=== PATIENT | male | born 1985 | race Two or more races ===

== ENCOUNTER 2019-08-19 06:03 | Inpatient (IN) | payer MEDICAID ==
[~2019-08-19] VITALS: Ht 165.1 cm; Wt 97.1 kg
[~2019-08-19 06:03] MED LIST: CICL8KIT4 EX; KETO2CRE4 TOP; LIDO5DIS21 TOP
[2019-08-19] MEDS ORDERED: HEPARIN SODIUM (PORCINE) 5000 UNITS/ML 1ML VIAL ONE (06:53)
[2019-08-19] MEDS ORDERED: ceFAZolin 1GM/50ML 100 ML IV ONE (06:55)
[2019-08-19] MEDS ORDERED: SUCCINYLCHOLINE CHLORIDE 20 MG/ML 10ML VIAL IV ONE (07:07)
[2019-08-19] MEDS ORDERED: LIDOCAINE W/ EPINEPHRINE 1% 20ML VIAL ONE (07:24)
[2019-08-19] MEDS ORDERED: BUPIVACAINE 0.25% INJ 50ML VIAL ONE (07:24)
[2019-08-19] MEDS ORDERED: ROCURONIUM 10MG/ML 10ML VIAL IV ONE (07:40)
[2019-08-19] MEDS ORDERED: fentaNYL CITRATE 100 MCG/2 ML VL ONE ×2 (07:40→08:11)
[2019-08-19] MEDS ORDERED: PROPOFOL 10 MG/ML 20 ML IV ONE (07:45)
[2019-08-19] MEDS ORDERED: SODIUM CHLORIDE 0.9% 1,000 ML IV SCH (09:12)
[2019-08-19] MEDS ORDERED: DOCUSATE SOD 100 MG CAP PO PRN (09:15)
[2019-08-19] MEDS ORDERED: HYDROmorphone HCL 2 MG/ML VL IV PRN ×2 (09:15)
[2019-08-19] MEDS ORDERED: ePHEDrine SULFATE 50 MG/ML AMP IV PRN (09:15)
[2019-08-19] MEDS ORDERED: MORPHINE SULF INJ 2 MG/ML SYRINGE 1ML IV PRN (09:15)
[2019-08-19] MEDS ORDERED: ONDANSETRON HCL 4 MG/2 ML VIAL IV PRN ×2 (09:15)
[2019-08-19] MEDS ORDERED: hydrALAZINE HCL 20 MG/ML VL IV PRN (09:15)
[2019-08-19] MEDS ORDERED: NITROGLYCERIN 0.4 MG SL TAB SL PRN (09:15)
[2019-08-19] MEDS ORDERED: HYDROmorphone HCL 2 MG/ML VL ONE (09:19)
--- NOTE | 2019-08-19 10:50 | NUR ---
Telemetry admit from OR JORDAN JOHNSON admitted to Telemetry unit after SBAR received. Patient oriented to [facility] boss RN, unit, room, bed, and unit policies regarding patient care and visiting hours. Patient now on continuous telemetry monitoring, tele box # [77] and telemetry reading on arrival to unit is [SR 76]. Patient placed on bedside oxygen at 3L via NC, on continuous pulse ox per MD's order. weighed by bedscale and encouraged to call if they need something. All questions and concerns addressed, patient verbalized understanding.
[2019-08-19 13:00] VITALS: BP 128/82
[2019-08-19 15:04] LABS: Basophils # (auto) 0 10 ^3/uL (0-0.2); Basophils % (auto) 0.2 % (0.0-2.0); Eosinophils # (auto) 0 10 ^3/uL (0-0.8); Hematocrit 43.6 % (41.0-53.0); Hemoglobin 14.3 g/dL (13.5-17.5); Lymphocytes # (auto) 0.6 10 ^3/uL (0.4-5.4); Lymphocytes % (auto) 5.2 % (10.0-50.0); Mean Corpuscular Hemoglobin 27.5 pg (28.0-32.0); Mean Corpuscular Hgb Conc. 32.8 g/dL (32.0-36.0); Mean Corpuscular Volume 83.7 fL (80.0-100.0); Monocytes # (auto) 0.2 10 ^3/uL (0-1.3); Monocytes % (auto) 1.7 % (0.0-12.0); Neutrophils # (auto) 11.1 10 ^3/uL (1.6-8.6); Neutrophils % (auto) 92.9 % (37.0-80.0); Platelet Count (auto) 137 10^3/uL (140-450); Red Cell Distribution Width 14.4 % (11.8-14.3); White Blood Cell 11.9 10^3/uL (4.4-10.8)
[2019-08-19 15:17] LABS: BUN/Creatinine Ratio 12.2; Calcium 8.8 mg/dL (8.5-10.1); Potassium 3.9 mmol/L (3.5-5.1)
[2019-08-19 15:51] VITALS: BP 128/82
[2019-08-19 17:00] VITALS: BP 123/74
[2019-08-19] MEDS: HYDROcodone-ACET 5/325MG TAB PO PRN (17:34)
[2019-08-19 19:20] VITALS: BP 134/72
[2019-08-19 22:56] VITALS: BP 134/73
[2019-08-20 05:49] VITALS: BP 113/55
[2019-08-20 06:35] LABS: Basophils # (auto) 0 10 ^3/uL (0-0.2); Basophils % (auto) 0.1 % (0.0-2.0); Eosinophils # (auto) 0 10 ^3/uL (0-0.8); Eosinophils % (auto) 0.1 % (0.0-7.0); Hematocrit 40.7 % (41.0-53.0); Hemoglobin 13.7 g/dL (13.5-17.5); Lymphocytes # (auto) 1.7 10 ^3/uL (0.4-5.4); Lymphocytes % (auto) 16.4 % (10.0-50.0); Mean Corpuscular Hemoglobin 28.1 pg (28.0-32.0); Mean Corpuscular Hgb Conc. 33.6 g/dL (32.0-36.0); Mean Corpuscular Volume 83.7 fL (80.0-100.0); Neutrophils # (auto) 7.6 10 ^3/uL (1.6-8.6); Neutrophils % (auto) 73.4 % (37.0-80.0); Platelet Count (auto) 158 10^3/uL (140-450); Red Blood Cells 4.87 10^6/uL (4.5-5.90); Red Cell Distribution Width 14.5 % (11.8-14.3); White Blood Cell 10.4 10^3/uL (4.4-10.8)
[2019-08-20 07:01] LABS: Potassium 3.7 mmol/L (3.5-5.1)
[2019-08-20 07:04] LABS: BUN/Creatinine Ratio 11.3; Calcium 8.9 mg/dL (8.5-10.1)
--- NOTE | 2019-08-20 07:26 | NUR ---
Assumed care of patient from noc shift rn. Patient awake and resting comfortably in bed. Denies SOB or pain, no s/s of distress at this time. Plan of care discussed. Encouraged to call for assistance prn. Bed in lowest and locked position. Will continue to monitor q1hr and prn.
--- NOTE | 2019-08-20 07:43 | NUR ---
RT NOTE: PT RECEIVED ALREADY OFF OF CPAP ON 2L NC. [id number] HR 84 RR 16. WILL CONTINUE TO MONITOR.
[2019-08-20 08:00] VITALS: BP 118/75
[2019-08-20 09:07] VITALS: BP 118/75
--- NOTE | 2019-08-20 10:58 | NUR ---
RECEIVED CALLBACK FROM DR. NAJERA REGARDING CHANGES TO PATIENT'S TELE MONITOR READING. SR 84, VT 0.20, QRS 0.10, ELEVATED ST WITH PEAKED T-WAVE MD RECOMMENDED TO CALL DR. Kayla HILTON, AND TO DISCHARGE PATIENT IF DR. HILTON CLEARS PATIENT.
--- NOTE | 2019-08-20 11:00 | NUR ---
SPOKE TO DR. Kayla FATIMA AND INFORMED OF DR. Desean SHOEMAKER'S RECOMMENDATION. MD ORDERED 12 LEAD EKG AND REQUEST TO PUT CARDIO CONSULT FOR DR. WHITMORE WILL HOLD OFF ON DISCHARGE UNTIL PATIENT HAS BEEN CLEARED FROM CARDIO PERSPECTIVE.
--- NOTE | 2019-08-20 12:00 | NUR ---
Assessment Patient is a 33- year-old male who is alert and oriented. Prior to admission patient lived home with his and function independently. Per patient he can care for her own ADLs. Per patient he does not have any medical equipment now. Per patient he will return to his prior living arrangements post discharge and will transport patient home. Advise patient there is a social service consult for home health safety evaluation, outpatient sleep study within 1 week, and to follow up with PCP after 3 to 5 days after discharge. Informed patient his medical group will arranged his outpatient sleep study. Informed patient clinical information will be faxed to [facility]. Informed patient he has the right to participate in all discharge planning. Patient verbalized understanding and agreed to discharge plan. Faxed clinical information to [facility], [facility] requesting authorization for agency. Per Dana with [facility] patient has been accepted and service to start within 24-48hrs upon d/c day. Addendum: 08/20/19 at 1200 by HEATHER CHING Amended: Links added.
--- NOTE | 2019-08-20 12:00 | NUR ---
D/C Planning regarding social service consult for CPAP. Placed called to sap solution manager consultant Lenore with [facility] advising me patient will have to go to his outpatient sleep study appointment on 08/26/19 at 14:45 in [place] ) before authorizing the CPAP machine. Informed FELTON Singletary.
--- NOTE | 2019-08-20 12:05 | NUR ---
12 LEAD EKG OBTAINED PER MD'S ORDER.
--- NOTE | 2019-08-20 12:15 | NUR ---
DR. Kayla HILTON AT BEDSIDE, DISCUSSED PLAN OF CARE WITH PATIENT. MD AWARE OF THE RECENT 12 LEAD EKG THAT WAS OBTAINED. PER MD, WE WILL WAIT FOR DR. WHITMORE TO CLEAR PATIENT FOR DISCHARGE.
[2019-08-20 13:00] VITALS: BP 104/60
[2019-08-20] MEDS: HYDROcodone-ACET 5/325MG TAB PO PRN (13:26)
--- NOTE | 2019-08-20 13:27 | NUR ---
NORCO 5/325MG GIVEN FOR 5/10 ABDOMINAL PAIN. WILL CONTINUE TO REASSESS AND PROVIDE COMFORT.
--- NOTE | 2019-08-20 13:51 | NUR ---
Obtain authorization from [facility] [id number] for home health agency.
--- NOTE | 2019-08-20 13:55 | NUR ---
DR WHITMORE AT BEDSIDE, DISCUSSED PLAN OF CARE WITH PATIENT. MD CLEARS PATIENT FOR DISCHARGE.
--- NOTE | 2019-08-20 16:10 | NUR ---
PATIENT DISCHARGED HOME AT THIS TIME PER MD'S ORDER. VERBALIZED UNDERSTANDING OF DISCHARGE INSTRUCTIONS. AMBULATORY, ALERT AND ORIENTED AT THIS TIME. IV DISCONTINUED AND TELE BOX RETURNED TO ICU
[2019-08-20 16:33] VITALS: BP 122/78
== END 2019-08-20 16:10 | disposition home or self-care (01) | DRG 263 ==
LOC: SUR 06:03 → WEST WING 10:52 → TELE-WESTW 19:55
PROVIDERS: ADMIT Surgery; ATTEND Surgery
PROC: 0DNW0ZZ Release Peritoneum, Open Approach (ICD-10-PCS; 2019-08-19)
PROC: 5A09357 Assistance with Respiratory Ventilation, Less than 24 Consecutive Hours, Continuous Positive Airway Pressure (ICD-10-PCS; 2019-08-19)
PROC: 0FT44ZZ Resection of Gallbladder, Percutaneous Endoscopic Approach (ICD-10-PCS; principal; 2019-08-19 07:34)
DX: K80.10 Calculus of gallbladder with chronic cholecystitis without obstruction (principal); E66.9 Obesity, unspecified; G47.33 Obstructive sleep apnea (adult) (pediatric); K66.0 Peritoneal adhesions (postprocedural) (postinfection); Z80.42 Family history of malignant neoplasm of prostate; Z83.3 Family history of diabetes mellitus; Z03.818 Encounter for observation for suspected exposure to other biological agents ruled out; Z90.49 Acquired absence of other specified parts of digestive tract; Z68.35 Body mass index [BMI] 35.0-35.9, adult; Z88.8 Allergy status to other drugs, medicaments and biological substances
CPT/HCPCS: 36415; 80048; 85025; 86850; 86900; 86901; 94660; G0378; J0330; J0690; J2704; J3490